=== PATIENT | female | born 1960 | race Caucasian/White ===

== ENCOUNTER 2023-04-18 10:55 | Outpatient (OUT) | payer BC, SELFPAY ==
[2023-04-18 11:09] LABS: Basophils Percent Auto 0.3 % (0.2-2.0); Eosinophils Absolute Auto 0.1 10^3/uL (0.0-0.7); Eosinophils Percent Auto 0.6 % (0.9-7.0); Hematocrit 41.6 % (36.0-48.0); Hemoglobin 13.3 g/dL (12.0-16.0); Immature Granulocytes Abs Auto 0.02 10^3/uL (0.00-0.03); Immature Granulocytes Pct Auto 0.2 % (0.0-0.5); Lymphocytes Absolute Auto 8.4 10^3/uL (1.2-3.8); Lymphocytes Percent Auto 67.7 % (20.5-60.0); Mean Corpuscular Hemoglobin 29.3 pg (26.7-34.0); Mean Corpuscular Volume 91.6 fL (81.0-99.0); Mean Platelet Volume 11.5 fL (9.5-13.5); Monocytes Absolute Auto 0.8 10^3/uL (0.3-0.8); Monocytes Percent Auto 6.2 % (1.7-12.0); Neutrophils Absolute Auto 3.1 10^3/uL (1.4-6.5); Platelet Count 259 10^3/uL (150-450); Red Blood Count 4.54 10^6/uL (4.20-5.40); Red Cell Distribution Width 13.2 % (11.0-15.0); White Blood Count 12.4 10^3/uL (4.0-11.0)
[2023-04-18 14:30] LABS: Alanine Aminotransferase 30 U/L (14-59); Albumin Globulin Ratio 0.9; Albumin Level 3.4 g/dL (3.4-5.0); Alkaline Phosphatase 49 U/L (46-116); Anion Gap 10.9; Aspartate Amino Transferase 21 U/L (15-37); BUN Creatinine Ratio 19.3; Bilirubin Total 0.4 mg/dL (0.2-1.0); Calcium 8.9 mg/dL (8.5-10.1); Chloride 107 mmol/L (98-107); Chol HDL Ratio 2.4; Cholesterol 194 mg/dL (<=200); Estimated GFR (African America >60 (>=60); Estimated GFR (Non-African Ame >60 (>=60); Glucose 86 mg/dL (74-106); HDL Cholesterol 82 mg/dL (40-60); Potassium 3.9 mmol/L (3.5-5.1); Sodium 140 mmol/L (136-145); Thyroid Stimulating Hormone 1.211 uIU/mL (0.358-3.740); Total Protein 7.4 g/dL (6.4-8.2); Triglycerides 49 mg/dL (<=150); VLDL CHOLESTEROL 9.8 mg/dL
[2023-04-18 21:24] LABS: Estimated Average Glucose 108 mg/dL; Glycohemoglobin A1C 5.4 % (4.5-6.2)
== END 2023-04-18 10:56 | disposition home or self-care (01) ==
LOC: LAB 10:55
PROVIDERS: PCP Family Medicine; Visit Provider Family Medicine
DX: Z00.00 Encounter for general adult medical examination without abnormal findings (principal)
CPT/HCPCS: 36415; 80053; 80061; 83036; 84443; 85025

== ENCOUNTER 2024-05-03 11:28 | Outpatient (OUT) | payer BC, SELFPAY ==
[2024-05-03 11:52] LABS: Basophils Absolute Auto 0.1 10^3/uL (0.0-0.1); Basophils Percent Auto 0.4 % (0.2-2.0); Eosinophils Absolute Auto 0.2 10^3/uL (0.0-0.7); Eosinophils Percent Auto 1.2 % (0.9-7.0); Hematocrit 41.9 % (36.0-48.0); Hemoglobin 13.3 g/dL (12.0-16.0); Immature Granulocytes Abs Auto 0.02 10^3/uL (0.00-0.03); Immature Granulocytes Pct Auto 0.1 % (0.0-0.5); Lymphocytes Absolute Auto 11.8 10^3/uL (1.2-3.8); Lymphocytes Percent Auto 76.6 % (20.5-60.0); Mean Corpuscular HGB Conc 31.7 g/dL (29.9-35.2); Mean Corpuscular Hemoglobin 28.7 pg (26.7-34.0); Mean Corpuscular Volume 90.5 fL (81.0-99.0); Mean Platelet Volume 11.6 fL (9.5-13.5); Monocytes Absolute Auto 0.7 10^3/uL (0.3-0.8); Monocytes Percent Auto 4.4 % (1.7-12.0); Neutrophils Absolute Auto 2.7 10^3/uL (1.4-6.5); Neutrophils Percent Auto 17.3 % (43.0-75.0); Platelet Count 239 10^3/uL (150-450); Red Blood Count 4.63 10^6/uL (4.20-5.40); Red Cell Distribution Width 13.5 % (11.0-15.0); White Blood Count 15.5 10^3/uL (4.0-11.0)
[2024-05-03 12:48] LABS: Alanine Aminotransferase 25 U/L (14-59); Albumin Globulin Ratio 0.9; Albumin Level 3.4 g/dL (3.4-5.0); Alkaline Phosphatase 52 U/L (46-116); Anion Gap 15.1; Aspartate Amino Transferase 21 U/L (15-37); BUN Creatinine Ratio 18.3; Bilirubin Total 0.5 mg/dL (0.2-1.0); Calcium 9.7 mg/dL (8.5-10.1); Carbon Dioxide 26.1 mmol/L (21.0-32.0); Chloride 105 mmol/L (98-107); Chol HDL Ratio 2.6; Cholesterol 196 mg/dL (<=200); Estimated GFR (African America >60 (>=60 mL/min/1.73m^2); Estimated GFR (Non-African Ame >60 (>=60 mL/min/1.73m^2); Globulin 3.6 g/dL; Glucose 76 mg/dL (74-106); HDL Cholesterol 76 mg/dL (40-60); Potassium 4.2 mmol/L (3.5-5.1); Sodium 142 mmol/L (136-145); Thyroid Stimulating Hormone 2.175 uIU/mL (0.358-3.740); Triglycerides 44 mg/dL (<=150); VLDL CHOLESTEROL 8.8 mg/dL
[2024-05-03 12:55] LABS: Estimated Average Glucose 103 mg/dL; Glycohemoglobin A1C 5.2 % (4.5-6.2)
== END 2024-05-03 11:29 | disposition home or self-care (01) ==
LOC: LAB 11:28
PROVIDERS: PCP Family Medicine; Visit Provider Nurse Practitioner Family
DX: Z00.00 Encounter for general adult medical examination without abnormal findings (principal)
CPT/HCPCS: 80053; 80061; 83036; 84443; 85025

== ENCOUNTER 2025-01-29 07:31 | Outpatient (OUT) | payer MEDICARE, OTHER, SELFPAY ==
--- OUTSIDE RECORDS SUMMARY | 2024-09-19 12:15 | XMS_ITS ---
Author Organization The [facility] in [place] Address [address] [place] [address] Care Team Providers Care Canine Deputy Name Role Phone Vincent Kenny Primary Care Provider [phone] Allergies Allergen (clinical drug ingredient) Drug/Non Drug Allergy documented on EMR Reaction Allergy Type Onset Date Status amoxicillin Amoxicillin nausea and vomiting Drug Allergy Active REASON FOR VISIT Body Aches, Stuffy Nose, Congestion, No Energy Medications Medication SIG (Take, Route, Fr equency, Duration) Notes Start Date End Date Status Cefdinir 300 MG 2 capsule Orally onc e a day for 10 days 09/19/2024 Active Social History Tobacco Use: Social History Observation Description Date Details (start date - stop date) Never Smoker NA - NA Tobacco Control (Standard) Question Answer Notes Tobacco use: Nonsmoker AUDIT-C (Standard) Question Answer Notes Did you have a drink containing alcohol in the p ast year? No Points 0 Interpretation Negative Vital Signs Weight 139 lbs 09/19/2024 Height 63 in 09/19/2024 Blood pressure systolic 118 mm Hg 09/20/19 25 Blood pressure diastolic 62 mm Hg 025 BMI 24.62 kg/m2 09/19/2024 Encounters Encounter Location Date Provider Diagnosis [facility] [address] [place] [address] 09/19/2024 Vincent Kenny Acute non-recurrent sinusitis, unspecified location J01.90 and Nasal congestion R09.81 Assessments Encounter Date Diagnosis (ICD Code) Assessment Notes Treatment Notes Treatment Clinical Notes Section Notes 09/19/2024 Acute non-recurrent sinusitis, unspecified location (ICD-10 - J01.90) Rest and drink more liquids, especially water. You may use a humidifier or vaporizer to help keep the drainage moist. Rkod-nph-okpwvog Nasal Saline may help the stuffy and runny nose. Use Ibuprofen and or Tylenol as needed for fever, chills, body aches or pain. Children 5 years old should not be given rghv-zjz-vegetsf cough and cold medications such as guaifenesin and dextromethorphan. If you're over age 5, you may try gfbu-qln-okqfofv cold medications such as guaifenesin and dextromethorphan, or multi-symptom cold reliever such as Dayquil to help reduce the symptoms. Antibiotics have been prescribed. You should take these until completed and follow the directions. Antibiotics can sometimes cause upset stomach, and in rare cases, serious allergic reactions or serious gastrointestinal problems. If you start having severe abdominal pain, severe vomiting, or bloody diarrhea, you should be reevaluated by your physician or urgent care immediately. Follow up with your Primary Care Provider or return to clinic if symptoms do not improve within 3-5 days 09/19/2024 Nasal congestion (ICD-10 - R09.81) Plan Of Treatment Medication Medication Name Sig Start Date Stop Date Notes Cefdinir 300 MG 2 capsule Orally once a day for 10 days Treatment Notes Assessment Notes Acute non-recurrent sinusiti s, unspecified location Rest and drink more liquids, especially water. You may use a humidifier or vaporizer to help keep the drainage moist. Tzkq-lwj-frrmigj Nasal Saline may help the stuffy and runny nose. Use Ibuprofen and or Tylenol as needed for fever, chills, body aches or pain. Children 5 years old should not be given rujs-vnw-ohftmmf cough and cold medications such as guaifenesin and dextromethorphan. If you're over age 5, you may try lvhc-ofc-pnjgoom cold medications such as guaifenesin and dextromethorphan, or multi-symptom cold reliever such as Dayquil to help reduce the symptoms. Antibiotics have been prescribed. You should take these until completed and follow the directions. Antibiotics can sometimes cause upset stomach, and in rare cases, serious allergic reactions or serious gastrointestinal problems. If you start having severe abdominal pain, severe vomiting, or bloody diarrhea, you should be reevaluated by your physician or urgent care immediately. Follow up with your Primary Care Provider or return to clinic if symptoms do not improve within 3-5 days Next Appt Details Follow Up: 3-5 days if not i mproving, Reason: Progress Notes * Charisse VOGT LDOB: [birth year] (64 yo F)Acc No.[id number]:09/19/2024 Progress Note Patient: Charisse AGUILAR Provider: Jose Kenny ([facility])MD :1960 A ge:64 Y S ex:Female Date:09/19/2024 Address:[address] [place], [place] [id number] Check In:04:03 PM ESTCheck O ut:04:45 PM EST Subjective: * Chief Complaints: * B norma Aches, Stuffy Nose, Congestion, No Energy * HPI: G eneral: sinu and some cough - pressure in sinuses - full sinuses -. S inusitis: The patient complains of symptoms of sinus infection. The symptoms have been present for 1-2 days. The symptoms are moderate. Symptomatic treatment has included OTC medication. Associated symptoms include headache, facial pain, runny nose, nasal congestion. D epression Screening: PHQ-2 (2015 Edition) L ittle interest or pleasure in doing things??Not at all F eeling down, depressed, or hopeless? N ot at all T otal Score 0 * ROS: S kin: Rash d enies. E NT: Comments S ee HPI for details. C ardiovascular: Edema d enies. P alpitations d enies. ? R espiratory: Chest pain d enies. C ough d enies. W heezing?denies. G astrointestinal: Abdominal pain d enies. N ausea d enies. V omiting d enies. * Active Problem List ?Problem List has not been verified* Medical History: * Surgical History: L eft Wrist Surgery * Hospitalization/Major Diagno stic Procedure: D enies Past Hospitalization * Family History: F ather: , diagnosed with Unspecified heart disease. M other: alive, diagnosed with Unspecified heart disease. B rother(s): alive, diagnosed with Unspecified essential hypertension. S ister(s): alive. 3 brother(s) , 1 sister(s) . . * Social History: T obacco Use: T obacco Control (Standard) T obacco use: N onsmoker D rug/Alcohol: A ANSELMO-C (Standard) D id you have a drink containing alcohol in the past year? N o P oints 0 I nterpretation N egative * Medications: N one * Allergies: A moxicillin: nausea and vomitingno[Allergies Verified] Objective: * Vitals: W t:139lbs, Ht: 63 in, BP:118/62mm Hg, BMI:24.62Index, Ht-cm: 160.02 cm, Wt-k.05 kg. * Examination: G eneral Examination: GENERAL APPEARANCE: in no acute distress, well developed, well nourished. ENT: ear and nose external appearance normal, tympanic membranes clear bilaterally, facial tenderness to palpation over sinuses. EYES: pupils equal, round, reactive to light and accomodations. ORAL CAVITY: mucosa moist. NECK: n sonali supple, full range of motion, no cervical lymphadenopathy. LUNGS: c lear to auscultation bilaterally. CARDIO: no murmurs, regular rate and rhythm, S1, S2 normal. ABDOMEN: soft, nontender , not distended, bowel sounds are active. SKIN: no suspicious lesions, warm and dry. EXTREMITIES: no clubbing, cyanosis, or edema. NEUROLOGIC: nonfocal, motor strength of upper/lower extremities intact , sensory exam intact. Assessment: * Assessment: 1. A cute non-recurrent sinusitis, unspecified location - J01.90 (Primary) 2 .?Nasal congestion - R09.81 Plan: * Treatment: * Procedure Codes: * Follow Up: 3 -5 days if not improving * * Sign off status: Completed Visit Status: C HK (Check Out) true * Provider: Jose Kenny ([facility])MD Date: 0 09/19/2024 Generated for Nahed castaneda/Faxing/eTransmitting on: 0 01/29/2025 07:39 AM EDT History and Physical Notes * HPI (History of Present Illness) Category Sub-Category Detail Notes Category Not es General sinu and some cough - pressure in sinuses - full sinuses - Depression Screening PHQ-2 (2015 Edition) Little interest or pleasure in doing things?: Not at all Feeling down, depressed, or hopeless?: N ot at all Total Score: 0 Examination Category Sub-Category Detail Notes Category Not es General Examination GENERAL APPEARANCE: in no ac [place] distress, well developed, well nourished ENT: ear and nose externa l appearance normal, tympanic membranes clear bilaterally, facial tenderness to palpation over sinuses EYES: pupils equal, round, reactive to light and accomodations NECK: neck supple, full ra nge of motion, no cervical lymphadenopathy CARDIO: no murmurs, regular rate and rhythm, S1, S2 normal LUNGS: clear to auscultatio n bilaterally ABDOMEN: soft, nontender , no t distended, bowel sounds are active NEUROLOGIC: nonfocal, motor stre ngth of upper/lower extremities intact , sensory exam intact SKIN: no suspicious lesion s, warm and dry EXTREMITIES: no clubbing, cyanosi s, or edema ORAL CAVITY: mucosa moist
--- OUTSIDE RECORDS SUMMARY | 2025-01-21 11:15 | XMS_ITS ---
Author Organization [facility] in [place] Address [address] [place] [address] Care Team Providers Care Mine Development Engineer Name Role Phone Vincent Kenny Primary Care Provider [phone] Allergies Allergen (clinical drug ingredient) Drug/Non Drug Allergy documented on EMR Reaction Allergy Type Onset Date Status amoxicillin Amoxicillin nausea and vomiting Drug Allergy Active REASON FOR VISIT tightness in her chest that wraps around to her back, started 2 weeks ago, no shortness of breath Social History Tobacco Use: Social History Observation Description Date Details (start date - stop date) Never Smoker NA - NA Tobacco Control (Standard) Question Answer Notes Tobacco use: Nonsmoker AUDIT-C (Standard) Question Answer Notes Did you have a drink containing alcohol in the p ast year? No Points 0 Interpretation Negative Problems Problem Type SNOMED Code ICD Code Onset Dates Problem Status W/U Status Risk Notes Problem Chest pain (91061550) Chest pain (R07.9) Active confirmed Vital Signs Weight 141 lbs 01/21/2025 Height 63 in 01/21/2025 Blood pressure systolic 112 mm Hg 01/22/20 25 Blood pressure diastolic 68 mm Hg 025 BMI 24.97 kg/m2 01/21/2025 Procedures Procedure Date Ordered Date Performed Result Body Sit e CARDIO Stress Test - Cardiolite 01/21/2025 N/A CARDIO Echocardiogram 01/21/2025 N/A Encounters Encounter Location Date Provider Diagnosis [facility] [address] [place] [address] 01/21/2025 Vincent Kenny Chest pain R07.9 Assessments Encounter Date Diagnosis (ICD Code) Assessment Notes Treatment Notes Treatment Clinical Notes Section Notes 01/21/2025 Chest pain (ICD-10 - R07.9) 01/21/2025 Other Discussed increasing physical exercise and continuing/impl ementing a healthier diet. Plan Of Treatment Treatment Notes Assessment Notes Other Discussed increasing physical exercise and continuing/implementing a healthier diet. Pending Test Test Name Order Date CARDIO Stress Test - Cardiolite 01/22/20 CARDIO Echocardiogram 01/21/2025 Procedure Notes * Category Sub-Category Detail Notes EKG w/Interp Interpretation: Frequent PAC's-[address] - T wave changes Progress Notes * Charisse VOGT LDOB: [birth year] (64 yo F)Acc No.[id number]:01/21/2025 Progress Note Patient: Charisse AGUILAR Provider: Jose Kenny ([facility])MD :1960 A ge:64 Y S ex:Female Date:01/21/2025 Address:[address] [place], [place] [id number] Check In:03:08 PM ESTCheck O ut:03:50 PM EST Subjective: * Chief Complaints: * T ightness in her chest that wraps around to her back, started 2 weeks ago, no shortness of breath * HPI: G eneral: Palpitations and chext pressure - some BRAGG. C hest Pain: The patient complains of c hest pain. The symptoms have been present for 1 -2 days . The symptoms are m ild. Symptomatic treatment has included n one. Associated symptoms include f atigue, chest tightness. * ROS: G eneral/Constitutional: Lightheadedness d enies. C hange in appetite d enies. W eight Change d enies. C ardiovascular: Irregular heartbeat d enies. S welling in hands/feet?denies. R espiratory: Shortness of breath d enies. S hortness of breath at rest d enies. W heezing d enies. N eurologic: Dizziness d enies. F ainting d enies. H eadache?denies. * Active Problem List R07.9 Chest pain Modified On:01/21/2025W/U Status:confirmed * Medical History: * Surgical History: L eft Wrist Surgery * Hospitalization/Major Diagno stic Procedure: N o Hospitalization History. * Family History: F ather: , diagnosed [...] and vomitingno[Allergies Verified] Objective: * Vitals: W t:141lbs, Ht: 63 in, BP:112/68mm Hg, BMI:24.97Index, Ht-cm: 160.02 cm, Wt-k.96 kg. * Examination: G eneral Examination: GENERAL APPEARANCE: in no acute distress, well developed, well nourished. LUNGS: clear to auscultation bilaterally. CARDIO: S1, S2 normal, no murmurs, rubs, gallops. EXTREMITIES: no clubbing, cyanosis, or edema. NEUROLOGIC: alert, oriented to time, place, & person.? Assessment: * Assessment: 1. C hest pain - R07.9 (Primary) Plan: * Treatment: 2. O thers Notes:Discussed increasing physical exercise and continuing/implementing a healthier diet. * Procedures: E KG w/Interp: Interpretation: F requent PAC's-[address] - T wave changes. * Procedure Codes: * * Sign off status: Completed Visit Status: C HK (Check Out) true * Provider: Jose Kenny ([facility])MD Date: 0 01/21/2025 Generated for Nahed castaneda/Laura/eTransmitting on: 0 01/29/2025 07:39 AM EDT History and Physical Notes * HPI (History of Present Illness) Category Sub-Category Detail Notes Category Not es Chest Pain The patient complains of chest pain The symptoms have been present for 1-2 d ays The symptoms are mild Symptomatic treatment has included none Associated symptoms include fatigue, hema st tightness General Palpitations and chext pressure - some BRAGG Examination Category Sub-Category Detail Notes Category Not es General Examination GENERAL APPEARANCE: in no ac [place] distress, well developed, well nourished CARDIO: S1, S2 normal, no mu rmurs, rubs, gallops LUNGS: clear to auscultatio n bilaterally NEUROLOGIC: alert, oriented to t naye, place, & person EXTREMITIES: no clubbing, cyanosi s, or edema
--- OUTSIDE RECORDS SUMMARY | 2025-01-29 07:39 | XMS_ITS | Patient Health Record ---
Author Organization [facility] in [place] Address [address] [place] [address] Care Team Providers Care Rejector Name Role Phone Vincent Kenny Primary Care Provider Allergies Allergen (clinical drug ingredient) Drug/Non Drug Allergy documented on EMR Reaction Allergy Type Onset Date Status amoxicillin Amoxicillin nausea and vomiting Drug Allergy Active Results Component Value Reference Range Notes TSH Reviewed date:05/03/2024 08:26:52 PM Interpretation: Performing Lab: Notes/Report: [facility] , Thyroid Stimulating Hormone 2.175 0.358-3.740 u IU/mL Performing Lab: see note ML - [facility] LB PROF 14(COMP METB) Reviewed date:05/03/2024 08:26:52 PM Interpretation: Performing Lab: Notes/Report: [facility] , Sodium 142 136-145 mmol/L Potassium 4.2 3.5-5.1 mmol/L Chloride 105 98-107 mmol/L Carbon Dioxide 26.1 21.0-32.0 mmol/L Anion Gap 15.1 Glucose 76 74-106 mg/dL Blood Urea Nitrogen 17.0 7.0-18.0 mg/dL Creatinine 0.93 0.55-1.02 mg/dL Estimated GFR ( Rosa Isela >60 >=60 mL/min/1.73m 2 Estimated GFR (Non- Lucia >60 >=60 mL/min/1.73m 2 BUN Creatinine Ratio 18.3 Calcium 9.7 8.5-10.1 mg/dL Bilirubin Total 0.5 0.2-1.0 mg/dL Aspartate Amino Transferase 21 15-37 U/L Alanine Aminotransferase 25 14-59 U/L Alkaline Phosphatase 52 46-116 U/L Total Protein 7.0 6.4-8.2 g/dL Albumin Level 3.4 3.4-5.0 g/dL Globulin 3.6 Albumin Globulin Ratio 0.9 Performing Lab: see note ML - [facility] LB LIPID PROFILE Reviewed date:05/03/2024 08:26:52 PM Interpretation: Performing Lab: Notes/Report: [facility] , Triglycerides 44 <=150 mg/dL Cholesterol 196 <=200 mg/dL HDL Cholesterol 76 40-60 mg/dL > or =60 mg/dl - LOW CARDIOVASCULAR RISK <40 mg/dl - HIGH CARDIOVASCULAR RISK LDL Cholesterol Calculated 112.0 <100 mg/dl OPTIMAL 100-129 mg/dl NEAR OR ABOVE OPTIMAL 130-159 mg/dl BORDERLINE HIGH 160-189 mg/dl HIGH >190 mg/dl VERY HIGH VLDL CHOLESTEROL 8.8 Chol HDL Ratio 2.6 3.3 - 4.4 LOW RISK 4.4 - 7.1 AVERAGE RISK 7.1 - 11.0 MODERATE RISK >11.0 HIGH RISK Performing Lab: see note ML - [facility] GLYCOHEMOGLOBIN A1C Reviewed date:05/03/2024 08:26:52 PM Interpretation: Performing Lab: Notes/Report: [facility] , Glycohemoglobin A1C 5.2 4.5-6.2 % ADA RECOMMENDED LIMIT 4.0 - 6.0 ADA THERAPEUTIC TARGET < 7.0 ACTION SUGGESTED > 7.0 Estimated Average Glucose 103 Performing Lab: see note ML - [facility] LB CBC AUTO DIFF Reviewed date:05/03/2024 01:00:50 PM Interpretation: Performing Lab: Notes/Report: [facility] , White Blood Count 15.5 4.0-11.0 10 3/uL Red Blood Count 4.63 4.20-5.40 10 6/uL Hemoglobin 13.3 12.0-16.0 g/dL Hematocrit 41.9 36.0-48.0 % Mean Corpuscular Volume 90.5 81.0-99.0 fL Mean Corpuscular Hemoglobin 28.7 26.7-34.0 pg Mean Corpuscular HGB Conc 31.7 29.9-35.2 g/dL Red Cell Distribution Width 13.5 11.0-15.0 % Platelet Count 239 150-450 10 3/uL Mean Platelet Volume 11.6 9.5-13.5 fL Neutrophils Percent Auto 17.3 43.0-75.0 % Lymphocytes Percent Auto 76.6 20.5-60.0 % Monocytes Percent Auto 4.4 1.7-12.0 % Eosinophils Percent Auto 1.2 0.9-7.0 % Basophils Percent Auto 0.4 0.2-2.0 % Immature Granulocytes Pct Auto 0.1 0.0-0.5 % Neutrophils Absolute Auto 2.7 1.4-6.5 10 3/uL Lymphocytes Absolute Auto 11.8 1.2-3.8 10 3/uL Monocytes Absolute Auto 0.7 0.3-0.8 10 3/uL Eosinophils Absolute Auto 0.2 0.0-0.7 10 3/uL Basophils Absolute Auto 0.1 0.0-0.1 10 3/uL Immature Granulocytes Abs Auto 0.02 0.00-0.03 10 3/uL Performing Lab: see note ML - [facility] Reason For Referral No Information Social History Tobacco Use: Social History Observation [...] W/U Status Risk Notes Problem Chest pain ([id number]) Chest pain (R07.9) Active confirmed Vital Signs Blood pressure diastolic 68 mm Hg 01/21/2025 Height 63 in 01/21/2025 Blood pressure systolic 112 mm Hg 01/21/2025 Weight 141 lbs 01/21/2025 BMI 24.97 kg/m2 01/21/2025 Procedures Procedure Date Ordered Date Performed Result Body Sit e CARDIO Stress Test - Cardiolite 01/21/2025 N/A CARDIO Echocardiogram 01/21/2025 N/A Encounters Encounter Location Date Provider Diagnosis [facility] [address] [place] [address] 09/19/2024 Vincent Hoy Acute non-recurrent sinusitis, unspecified location J01.90 and Nasal congestion R09.81 [facility] [address] [place] [address] 01/21/2025 Vincent Hoy Chest pain R07.9 Assessments Encounter Date Diagnosis (ICD Code) Assessment Notes Treatment Notes Treatment Clinical Notes Section Notes 09/19/2024 Acute non-recurrent sinusitis, unspecified location (ICD-10 - J01.90) Rest and drink more liquids, especially water. You may use a humidifier or vaporizer to help keep the drainage moist. Nuxg-jel-ktbfguq Nasal Saline may help the stuffy and runny nose. Use Ibuprofen and or Tylenol as needed for fever, chills, body aches or pain. Children 5 years old should not be given mhdc-sgj-kckghqx cough and cold medications such as guaifenesin and dextromethorphan. If you're over age 5, you may try qxxn-pym-owqhplt cold medications such as guaifenesin and dextromethorphan, [...] symptoms do not improve within 3-5 days 01/21/2025 Chest pain (ICD-10 - R07.9) 09/19/2024 Nasal congestion (ICD-10 - R09.81) 01/21/2025 Other Discussed incre asing physical exercise and continuing/implement ing a healthier diet. Plan Of Treatment Pending Test Test Name Order Date CARDIO Stress Test - Cardiolite 01/22/20 25 CARDIO Echocardiogram 01/21/2025 Insurance Providers Payer Name Payer Address Payer Phone Subscriber Number Group Number Insured Name Patient Relationship to Insured Coverage Start Date Coverage End Date [place]IC[place] [address] [place] [address] [id number] JeremyCharisse pan Self - patient is the insured [facility] MEDICARE SUPPLEMENT [address] [address] [place] [address] [id number] Charisse Vogt Self - patient is the insured Medical (General) History Surgical History Surgery Date(Month/Year) Left Wrist Surgery
--- NOTE | 2025-01-29 07:45 | NM_ITS ---
Patient Name: BENITO ALANIS MR#: [id number] : 1960 Exam Date: 01/29/2025 Ordering Doctor: DR FELICIA JARAMILLO . RADIOLOGY REPORT PROCEDURE: NM ANAYA PERF SPECT REST STR COMPARISON: None. INDICATIONS: CHEST PAIN TECHNIQUE: Exam Description: Stress/Rest one day protocol gated SPECT Rest Imagin.8 mCi Tc-99m Cardiolite IV on 01/29/2025 Stress Imaging 29.4 mCi Tc-99m Cardiolite IV on 01/29/2025 Exercise Protocol: Frandy Heart Rate (bpm): Rest: 73 Max: 142 PMHR: 91 Blood Pressure: Rest: 131/67 Max: 158/94 Exercise Time: Minutes: 6 Seconds: 31 Stage Reached: Stage: 3 Mets 8.6 Symptoms: Rest and peak stress ECG findings were pending, and the exercise portion of the study was pending per attending physician [facility] . For more details, please see separate cardiac stress test report. FINDINGS: QUALITY OF STUDY: Good PERFUSION DEFECT: LOCATION: N/A SIZE: N/A SEVERITY: N/A TYPE: N/A WALL MOTION: Normal wall motion LV SIZE: 51 mL. TID / TCD: 0.7 LVEF: Calculated EF 82%. SUMMARY: Myocardial perfusion imaging study is normal CONCLUSION: 1. Myocardial perfusion is normal with diaphragmatic attenuation 2. Global left ventricular systolic function is hyperdynamic; EF 82% 3. No evidence of significant transient ischemic dilatation Dictated by: Dayanna Castrejon M.D. on 01/29/2025 at 16:00 Approved by: Dayanna Castrejon M.D. on 01/29/2025 at 16:02
--- OUTSIDE RECORDS SUMMARY | 2025-01-29 07:58 | XMS_ITS | CCD ---
Author Organization [facility] Inform ion Partnership [facility] Care Team Providers Care Machine Captain Name Role Phone DANTE CONTRERAS Attending Unavailable DANTE CONTRERAS Consulting Unavailable DANTE CONTRERAS Admitting Unavailable REQUEST, DR MORRIS LISTED Primary Care Unavaila ble Results Test Name Value Interpretation Reference Range Facil ity GLUCOSE BLOODon 06-29-2022 Glucose [Mass/Vol] 83 mg/dL Normal 74-106 [facility] Comment on above: Performed By: #### L IPID, GLUC #### [facility] [address] [place] [address] Dr. Juana Limon LIPID PROFILEon 06-29-2022 CHOL-HDL RATIO NORM SEE BELOW Normal [facility] Comment on above: Result Comment: 3.3 - 4.4 LOW RISK 4.4 - 7.1 AVERAGE RISK 7.1 - 11.0 MODERATE RISK >11.0 HIGH RISK Performed By: #### L IPID, GLUC #### [facility] [address] [address] [address] Juana Limon Cholesterol [Mass/Vol] 196 mg/dL Normal <=200 [facility] Comment on above: Performed By: #### L IPID, GLUC #### [facility] [address] [address] [address] Juana Limon Cholesterol in HDL [Mass/Vol] 85 mg/dL Critically high 40-60 [facility] Comment on above: Performed By: #### L IPID, GLUC #### [facility] [address] [address] [address] Juana Limon Cholesterol in LDL [Mass/Vol] 98.8 mg/dL Normal [facility] Comment on above: Performed By: #### L IPID, GLUC #### [facility] [address] [address] [address] Juana Limon Cholesterol.total/C holesterol in HDL [Mass ratio] 2.3 {ratio} Normal [facility] Comment on above: Performed By: #### L IPID, GLUC #### [facility] [address] [address] [address] Juana Limon HDL NORMAL > or = 60 mg/dl - LO W CARDIOVASCULAR RISK <40 mg/dl - HIGH CARDIOVASCULAR RISK Normal [facility] Comment on above: Performed By: #### L IPID, GLUC #### [facility] [address] [address] [address] Juana Limon LDL CALC NORMAL SEE BELOW Normal [facility] Comment on above: Result Comment: <100 mg/dl OPTIMAL 100 - 129 mg/dl NEAR OR ABOVE OPTIMAL 130 - 159 mg/dl BORDERLINE HIGH 160 - 189 mg/dl HIGH >190 mg/dl VERY HIGH Performed By: #### L IPID, GLUC #### [facility] [address] [address] [address] Juana Limon Triglyceride [Mass/Vol] 61 mg/dL Normal <=150 [facility] Comment on above: Performed By: #### L IPID, GLUC #### [facility] [address] [address] [address] Juana Limon VLDL CALC 12.2 mg/dL Normal [facility] Comment on above: Performed By: #### L IPID, GLUC #### [facility] [address] [address] [address] Juana Limon Encounters Encounter Date Encounter Type Care Provider Facility Start: 07-03-2022 Encounter for genera l adult medical examination without abnormal findings DANTE CONTRERAS [facility] Start: 06-29-2022 End: 06-30-2022 ambulatory DANTE CONTRERAS Facility:[facility] Start: 06-29-2022 End: 06-30-2022 Encounter for general adult medical examination without abnormal findings DANTE CONTRERAS Facility:[facility] Payers Date Payer Category Payer Unknown [id number] 1960 Unknown [id number] Summary Purpose Family History No Family History Records Found Advance Directives No Advanced Directives Records Found Additional Source Comments INFORMATION SOURCE (unrecogn ized section and content) DATE CREATED AUTHOR 07/09/2022 The [facility] FOR RECORDS PERTAINING TO PATIENTS WHO ARE OR HAVE BEEN ENROLLED IN A CHEMICAL DEPENDENCY/SUBSTANCEABUSE PROGRAM, SOME INFORMATION MAY BE OMITTED. This clinical summary was aggregated from multiple sources. Caution should be exercised in using it in the provision of clinical care. This summary normalizes information from multiple sources, and as a consequence, information in this document may materially change the coding, format and clinical context of patient data. In addition, data may be omitted in some cases. CLINICAL DECISIONS SHOULD BE BASED ON THE PRIMARY CLINICAL RECORDS. [employer] [facility]. provides no warranty or guarantee of the accuracy or completeness of information in this document.
--- NOTE | 2025-01-29 10:00 | PC.NURSE ---
Nursing Note Cardiac Stress Test Reviewed: Medication, allergies and patient history reviewed. Stress Test: [x ] Patient tolerated stress test well. [ ] Patient unable to tolerate walking on treadmill. Switched to Lexiscan stress test. [x ] No chest pain noted per patient [ ] Chest pain that resolved prior to leaving stress lab. [ ] No dyspnea noted. [x ] Dyspnea that resolved prior to leaving stress lab. [x ] Patient left stress lab asymptomatic and hemodynamically stable. [ ] Patient taken to the Emergency Room due to non-resolving symptoms following stress test. [x ] Patient achieved target heart rate. [ ] Patient unable to achieve target heart rate. [ ] Aminophylline administered as reversal agent to Lexiscan (Regadenoson). [ ] Nitro administered. Nursing Comments:Pt had Cardiolite test done. No CP but did have SOB which she states is normal for her with activity. Pt left lab with no symptoms and ambulated to cafeteria for breakfast prior to second set of images.
--- NOTE | 2025-01-29 11:53 | PM.STRESS ---
Stress Test Stress Test Requesting physician: Preet Kenny Procedure: Treadmill nuclear stress test with Cardiolyte injection General Information: Reason for Stress Test: [Chest pain] Cardiac History and Risk Factors: [None documented] Resting 12 - Lead Electrocardiogram: Sinus rhythm with premature atrial complexes Incomplete right bundle branch block Borderline EKG Stress Test: Protocol: [Frandy protocol: The patient exercised for 6 minutes and 31 seconds achieving a work level of maximum METS 8.60. The test was terminated due to achievement of target heart rate and fatigue.] Exercise Capacity: [Average] Blood Pressure Response: [Normal blood pressure response] Rhythm: [Sinus rhythm with frequent premature atrial complexes] ST - Response: [No significant ST-T wave abnormalities] Patient Response: [No chest pain] Interpretation: 1. No ischemic ST-T wave abnormalities on treadmill stress test 2. Appropriate heart rate and blood pressure response to exercise 3. Sotelo treadmill score is +5.8; this represents a low risk category with estimated 5-year survival is 99%. Angiography is usually not indicated. 4. Nuclear images are to be read, interpreted, and reported separately
== END 2025-01-29 07:32 | disposition home or self-care (01) ==
LOC: NM 07:37
PROVIDERS: PCP Family Medicine; Visit Provider Family Medicine
DX: R07.9 Chest pain, unspecified (principal)
CPT/HCPCS: 78452; 93017; A9500

== ENCOUNTER 2025-02-13 08:43 | Outpatient (OUT) | payer MEDICARE, OTHER, SELFPAY ==
--- OUTSIDE RECORDS SUMMARY | 2024-09-19 12:15 | XMS_ITS ---
Author Organization The [facility] in [place] Address [address] [place] [address] Care Team Providers Care Beam House Inspector Name Role Phone Vincent Kenny Primary Care Provider Allergies Allergen (clinical drug ingredient) Drug/Non Drug [...] 09/19/2024 Encounters Encounter Location Date Provider Diagnosis [facility] [address] [place] [address] 09/19/2024 Vincent Kenny Acute non-recurrent sinusitis, unspecified location J01.90 and Nasal congestion R09.81 Assessments Encounter Date Diagnosis (ICD Code) Assessment Notes Treatment Notes Treatment Clinical Notes Section Notes 09/19/2024 Acute non-recurrent sinusitis, unspecified location (ICD-10 - J01.90) Rest and drink more liquids, especially water. You may use a humidifier or vaporizer to help keep the drainage moist. Tstm-ulr-kdqtyti Nasal Saline may help the stuffy and runny nose. Use Ibuprofen and or Tylenol as needed for fever, chills, body aches or pain. Children 5 years old should not be given pcjc-ixj-wdfswfj cough and cold medications such as guaifenesin and dextromethorphan. If you're over age 5, you may try xonu-wmy-fqqcyov cold medications such as guaifenesin and dextromethorphan, [...] vaporizer to help keep the drainage moist. Scxx-uhe-kpehofs Nasal Saline may help the stuffy and runny nose. Use Ibuprofen and or Tylenol as needed for fever, chills, body aches or pain. Children 5 years old should not be given zxss-ddr-ntetluu cough and cold medications such as guaifenesin and dextromethorphan. If you're over age 5, you may try atwp-wes-ysqjbcc cold medications such as guaifenesin and dextromethorphan, [...] Charisse VOGT LDOB: [birth year] (64 yo F)Acc No.[id number]:09/19/2024 Progress Note Patient: Charisse AGUILAR Provider: Jose Kenny ([facility])MD :1960 A ge:64 Y S ex:Female Date:09/19/2024 Address:[address] [place], [place] [id number] Check In:04:03 PM ESTCheck O ut:04:45 PM [...] (Check Out) true * Provider: Jose Kenny ([facility])MD Date: 0 09/19/2024 Generated for Nahed castaneda/Faxing/eTransmitting on: 0 02/13/2025 08:46 AM EDT History and Physical Notes * [...] General Examination GENERAL APPEARANCE: in no ac [place] distress, well developed, well nourished ENT: ear [...]
--- OUTSIDE RECORDS SUMMARY | 2025-01-21 11:15 | XMS_ITS ---
Author Organization The [facility] in [place] Address [address] [place] [address] Care Team Providers Care Linen Clerk Name Role Phone Vincent Kenny Primary Care [...] W/U Status Risk Notes Problem Chest pain (R07.9) Active confirmed Vital Signs Weight 141 lbs 01/21/2025 Height 63 in 01/21/2025 Blood pressure systolic 112 mm Hg 01/22/20 25 Blood pressure diastolic 68 mm Hg 025 BMI 24.97 kg/m2 01/21/2025 Procedures Procedure Date Ordered Date Performed Result Body Sit e CARDIO Stress Test - Cardiolite 01/21/2025 N/A CARDIO Echocardiogram 01/21/2025 N/A Encounters Encounter Location Date Provider Diagnosis [facility] [address] [place] [address] 01/21/2025 Vincent Kenny Chest pain R07.9 Assessments [...] - T wave changes Progress Notes * ZEKEChidiyl LDOB: [birth year] (64 yo F)Acc No.[id number]:01/21/2025 Progress Note Patient: Charisse AGUILAR Provider: Jose Kenny ([facility])MD :1960 A ge:64 Y S ex:Female Date:01/21/2025 Address:[address] [place], [place] [id number] Check In:03:08 PM ESTCheck O ut:03:50 PM [...] (Check Out) true * Provider: Jose Kenny ([facility])MD Date: 0 01/21/2025 Generated for Pagei leonel/Laura/eTransmitting on: 02/13/2025 08:47 AM EDT History and Physical Notes * [...]
--- OUTSIDE RECORDS SUMMARY | 2025-01-29 12:42 | XMS_ITS ---
Author Organization The [facility] [place] Address [address] [place] [address] Care Team Providers Care Deputy Clerk Of Court Name Role Phone Vincent Kenny Primary Care Provider [phone] REASON FOR VISIT stress results Encounters Encounter Location Date Provider Diagnosis [facility] [address] [place] [address] 01/29/2025 Vincent Kenny Plan Of Treatment No Information Progress Notes * Charisse VOGT LDOB: (64 yo F)Acc No.[id number]:01/29/2025 Patient: Jose IRENE Charisse Barrera :1960 A ge:64 Y S ex:Female Address:[address] [place] [address] , [place], [address] * true * Date: Generated for Nahed castaneda/Laura/eTransmitting on: 0 02/13/2025 08:46 AM EDT
--- OUTSIDE RECORDS SUMMARY | 2025-02-13 08:47 | XMS_ITS | Patient Health Record ---
Author Organization The [facility] in [place] Address [address] [place] [address] Care Team Providers Care Machinist Supervisor Outside Name Role Phone Vincent Jaramillo Primary Care Provider Allergies Allergen (clinical drug ingredient) Drug/Non Drug Allergy documented on EMR Reaction Allergy Type Onset Date Status amoxicillin Amoxicillin nausea and vomiting Drug Allergy Active Results Component Value Reference Range Notes CBC AUTO DIFF Reviewed date:05/03/2024 01:00:50 PM Interpretation: Performing Lab: Notes/Report: [facility] , White Blood Count 15.5 4.0-11.0 [...] 3/uL Performing Lab: see note ML - [facility] NM anaya perf SPECT rest str Reviewed date:01/29/2025 04:43:33 PM Interpretation: Performing Lab: Notes/Report: Source Facility: [place] [address] Nuclear Medicine Report Signed Patient: CHARISSE VOGT MR#: [id number] : 1960 Acct:[id number] Age/Sex: 64 / F ADM Date: 01/29/25 Loc: NM Attending Dr: Felicia Jaramillo M.D. Ordering Physician: Felicia Jaramillo M.D. Date of Service: 01/29/25 Procedure(s): NM anaya perf SPECT rest str Accession Number(s): [id number] cc: Felicia Jaramillo M.D. Patient Name: CHARISSE VOGT MR#: [id number] : 1960 Exam Date: 01/29/2025 Ordering Doctor: DR FELICIA JARAMILLO . RADIOLOGY REPORT PROCEDURE: NM ANAYA PERF SPECT REST STR COMPARISON: None. INDICATIONS: CHEST PAIN TECHNIQUE: Exam Description: Stress/Rest one day protocol gated SPECT Rest Imagin.8 mCi Tc-99m Cardiolite IV on 01/29/2025 Stress Imaging 29.4 mCi Tc-99m Cardiolite IV on 01/29/2025 Exercise Protocol: Frandy Heart Rate (bpm): Rest: 73 Max: 142 PMHR: 91 Blood Pressure: Rest: 131/67 Max: 158/94 Exercise Time: Minutes: 6 Seconds: 31 Stage Reached: Stage: 3 Mets 8.6 Symptoms: Rest and peak stress ECG findings were pending, and the exercise portion of the study was pending per attending physician [facility] . For more details, please see separate cardiac stress test report. FINDINGS: QUALITY OF STUDY: Good PERFUSION DEFECT: LOCATION: N/A SIZE: N/A SEVERITY: N/A TYPE: N/A WALL MOTION: Normal wall motion LV SIZE: 51 mL. TID / TCD: 0.7 LVEF: Calculated EF 82%. SUMMARY: Myocardial perfusion imaging study is normal CONCLUSION: 1. Myocardial perfusion is normal with diaphragmatic attenuation 2. Global left ventricular systolic function is hyperdynamic; EF 82% 3. No evidence of significant transient ischemic dilatation Dictated by: Dayanna Castrejon M.D. on 01/29/2025 at 16:00 Approved by: Dayanna Castrejon M.D. on 01/29/2025 at 16:02 Dictated By: Dayanna Castrejon M.D. Signed By: 01/29/25 1603 DD/ 1602 TD/TT: Police Lieutenant: [place] [address] Nuclear Medicine Report Signed Patient: NAZARIO VOGT MR#: [id number] : 1960 Acct:[id number] Age/Sex: 64 / F ADM Date: 01/29/25 Loc: NM Attending Dr: Gurmeet Jaramillo M.D. Ordering Physician: Felicia Jaramillo M.D. Date of Service: 01/29/25 Procedure(s): NM anaya perf SPECT rest str Accession Number(s): [id number] cc: Felicia Jaramillo M.D. Patient Name: CHARISSE VOGT MR#: [id number] : 1960 Exam Date: 01/29/2025 Ordering Doctor: DR FELICIA JARAMILLO . RADIOLOGY REPORT PROCEDURE: NM ANAYA PERF SPECT REST STR COMPARISON: None. INDICATIONS: CHEST PAIN TECHNIQUE: Exam Description: Stress/Rest one day protocol gated SPECT Rest Imagin.8 mC i Tc-99m Cardiolite IV on 01/29/2025 Stress Imaging 29.4 mCi Tc-99m Cardiolite IV on 01/29/2025 Exercise Protocol: Frandy Heart Rate (bpm): Rest: 73 Max: 142 PMHR: 91 Blood Pressure: Rest: 131/67 Max: 158/94 Exercise Time: Minutes: 6 Seconds: 31 Stage Reached: Stage : 3 Mets 8.6 Symptoms: Rest and peak stress ECG findings were pending, and the exercise portion of the study was pendin g per attending physician [facility] . For more details, please see separate cardiac stress test report. FINDINGS: QUALITY OF STUDY: Good PERFUSION DEFECT: LOCATION: N/A SIZE: N/A SEVERITY: N/A TYPE: N/A WALL MOTION: Normal wall motion LV SIZE: 51 mL. TID / TCD: 0.7 LVEF: Calculated EF 82%. SUMMARY: Myocardial perfusion imaging study is normal CONCLUSION: 1. Myocardial perfusion is normal with diaphragmatic attenuation 2. Global left ventricular systolic function is hyperdynamic; EF 82% 3. No evidence of significant transient ischemic dilatation Dictated by: Dayanna Castrejon M.D. on 01/29/2025 at 16:00 Approved by: Dayanna Castrejon M.D. on 01/29/2025 at 16:02 Dictated By: Dayanna Castrejon M.D. Signed By: 01/29/25 1603 DD/ 1602 TD/TT: Police Lieutenant: T[facility] Reviewed date:05/03/2024 08:26:52 PM Interpretation: Performing Lab: Notes/Report: [facility] , Thyroid Stimulating Hormone 2.175 0.358-3.740 uIU/mL Performing Lab: see note ML - [facility] PROF 14(COMP METB) Reviewed date:05/03/2024 08:26:52 PM Interpretation: Performing Lab: Notes/Report: [facility] , Sodium 142 136-145 mmol/L Potassium [...] 0.9 Performing Lab: see note ML - [facility] LIPID PROFILE Reviewed date:05/03/2024 08:26:52 PM Interpretation: Performing Lab: Notes/Report: [facility] , Triglycerides 44 <=150 mg/dL Cholesterol 196 <=200 mg/dL HDL Cholesterol 76 40-60 mg/dL <40 mg/dl - HIGH CARDIOVASCULAR RISK > or =60 mg/dl - LOW CARDIOVASCULAR RISK LDL Cholesterol Calculated 112.0 160-189 mg/dl HIGH 100-129 mg/dl NEAR OR ABOVE OPTIMAL <100 mg/dl OPTIMAL >190 mg/dl VERY HIGH 130-159 mg/dl BORDERLINE HIGH VLDL CHOLESTEROL 8.8 Chol HDL Ratio 2.6 7.1 - 11.0 MODERATE RISK 4.4 - 7.1 AVERAGE RISK 3.3 - 4.4 LOW RISK >11.0 HIGH RISK Performing Lab: see note - [facility] GLYCOHEMOGLOBIN A1C Reviewed date:05/03/2024 08:26:52 PM Interpretation: Performing Lab: Notes/Report: [facility] , Glycohemoglobin A1C 5.2 4.5-6.2 % ADA THERAPEUTIC TARGET < 7.0 ACTION SUGGESTED ADA RECOMMENDED LIMIT 4.0 - 6.0 > 7.0 Estimated Average Glucose 103 Performing Lab: see note ML - [facility] Reason For Referral No Information Social History [...] Date Performed Result Body Sit e CARDIO Echocardiogram 01/21/2025 N/A CARDIO Stress Test - Cardiolite 01/21/2025 N/A Encounters Encounter Location Date Provider Diagnosis [address] [place] [address] 09/19/2024 Vincent Hoy Acute non-recurrent sinusitis, unspecified location J01.90 and Nasal congestion R09.81 [address] [place] [address] 01/21/2025 Vincent Hoy Chest pain R07.[address] [address] 01/29/2025 Vincent Hoy Assessments Encounter Date Diagnosis (ICD Code) Assessment Notes Treatment Notes Treatment Clinical Notes Section Notes 09/19/2024 Acute non-recurrent sinusitis, unspecified location (ICD-10 - J01.90) Rest and drink more liquids, especially water. You may use a humidifier or vaporizer to help keep the drainage moist. Yqcq-wtj-booqdob Nasal Saline may help the stuffy and runny nose. Use Ibuprofen and or Tylenol as needed for fever, chills, body aches or pain. Children 5 years old should not be given bzln-djv-ygvshrr cough and cold medications such as guaifenesin and dextromethorphan. If you're over age 5, you may try pixp-bcr-kvuhqvw cold medications such as guaifenesin and dextromethorphan, [...] Test - Cardiolite 01/22/20 CARDIO Echocardiogram 01/21/2025 Insurance Providers Payer Name Payer Address Payer Phone Subscriber Number Group Number Insured Name Patient Relationship to Insured Coverage Start Date Coverage End Date [place] [address] [place] [address] [id number] Charisse Vogt Self - patient is the insured [employer] MEDICARE SUPPLEMENT [address] [address] [place] [address] [phone] [id number] Charisse Vogt Self - patient is the insured Medical (General) History Surgical History Surgery Date(Month/Year) Left Wrist Surgery
--- NOTE | 2025-02-13 09:00 | CA_ITS ---
Patient Name: BENITO ALANIS MR#: [id number] : 1960 Exam Date: 02/13/2025 Ordering Doctor: DR FELICIA JARAMILLO . ECHOCARDIOGRAM REPORT PROCEDURE: CA ECHO DOPPLER COMPLETE INDICATIONS: Chest pain COMPARISON: None. DESCRIPTION: COMPLETE ECHOCARDIOGRAM Real-time transthoracic echocardiography with 2D, M-mode, spectral and color flow Doppler performed. QUALITY: Technical quality was good. LEFT VENTRICLE: Normal chamber size. Thickened septal wall. Global left ventricular systolic function is normal. LV EF: Estimated left ventricular ejection fraction is 60%. DIASTOLIC: Normal diastolic function. ATRIAL SEPTUM: LEFT ATRIUM: Normal chamber size. RIGHT ATRIUM: Normal chamber size. RIGHT VENTRICLE: Normal chamber size. Normal right ventricular systolic function. TRICUSPID VALVE: Normal mobility and thickness. No stenosis with mild to moderate regurgitation. No evidence of pulmonary hypertension. RVSP 25 mmHg. MITRAL VALVE: Normal mobility and thickness. No evidence of mitral valve stenosis. There is no mitral annular calcification. Trivial mitral regurgitation. AORTIC VALVE: Normal trileaflet appearance. No visible sclerosis. Normal leaflet mobility. No evidence of aortic valve stenosis. Trivial aortic regurgitation. AORTIC ROOT: Normal diameter and appearance, measuring 3.1 cm. The ascending aorta is normal in size, measuring 2.4 cm. PULMONIC VALVE: Normal thickness and mobility. No stenosis. No regurgitation. PERICARDIUM: Trivial pericardial effusion. IVC: Collapses with inspiration. Normal size. PLEURA: CONCLUSION: 1. Normal ventricular size and systolic function. Estimated LVEF is 60%. 2. Normal diastolic function. 3. Mild to moderate tricuspid regurgitation. 4. Normal right-sided pressures. 5. Trivial pericardial effusion. Adult Echocardiography Procedure Report Left Ventricle LVEDD (3.7 - 5.6 cm): 3.99 cm LVESD (2.2 - 4.0 cm): 2.90 cm LVIVS thickness (0.6 - 1.2 cm): 1.21 cm LVPW thickness (0.5 - 1.0 cm): 0.80 cm e': 0.10 m/s E - e': 5.90 LVOT Max Gradient: 2.64 mm[Hg] LVOT Area (cm2): 0.81 m/s Peak Velocity (LVOT): 0.81 m/s Mean Velocity (LVOT): 0.54 m/s LVOT Diameter 1.94 cm Left Ventricular Ejection Fraction: 60% Left Atrium LA Volume Index (2D A2C): 23.89 ml/m2 Left Atrium Systolic Dimension: 3.00 cm Mitral Valve MV E to A Ratio: 1 Mitral Valve A-Wave Peak Velocity: 0.61 m/s Mitral Valve E-Wave Peak Velocity: 0.61 m/s Right Ventricle RV Internal Diastolic Dimension: 3.32 cm Aorta AO Root Diam: 3.06 cm Ascending Ao Diam: 2.42 cm Aortic Valve AoV Area (Peak Tay): 2.59 cm2, 2.59 cm2 AoV Area (VTI): 2.37 cm2, 2.37 cm2 Peak Velocity(Antegrade Flow): 0.92 m/s Peak Gradient(Antegrade Flow): 3.40 mm[Hg] Mean Velocity(Antegrade Flow): 0.66 m/s Mean Gradient(Antegrade Flow): 1.96 mm[Hg] Velocity Time Integral: 22.64 cm Tricuspid Valve Peak Velocity (Regurgitant Flow): 2.37 m/s, 2.27 m/s, 2.16 m/s, 2.28 m/s, 2.09 m/s Pulmonic Valve Mean Gradient: 3.06 mm[Hg] Mean Velocity: 0.82 m/s Peak Velocity: 1.17 m/s, 1.07 m/s Peak Gradient: 4.54 mm[Hg], 5.50 mm[Hg] Right Atrium Right Atrium Systolic Pressure: 35.40 ml, 35.40 ml Dictated by: Santos Pemberton M.D. on 02/13/2025 at 19:22 Approved by: Santos Pemberton M.D. on 02/13/2025 at 19:33
--- OUTSIDE RECORDS SUMMARY | 2025-02-13 09:01 | XMS_ITS | CCD ---
Author Organization [facility] Inform ion Partnership [facility] Care Team Providers Care Infrastructure Design Engineer Name Role Phone DANTE CONTRERAS Attending Unavailable DANTE CONTRERAS Consulting Unavailable DANTE CONTRERAS Admitting Unavailable REQUEST, DR MORRIS LISTED Primary Care Unavaila ble Results Test Name Value Interpretation Reference Range Facil ity GLUCOSE BLOODon 06-29-2022 Glucose [Mass/Vol] 83 mg/dL Normal 74-106 [facility] Comment on above: Performed By: #### L IPID, GLUC #### [facility] [address] [place] [address] Dr. Juana Limon LIPID PROFILEon 06-29-2022 CHOL-HDL RATIO NORM SEE BELOW Normal [facility] Comment on above: Result Comment: 3.3 - 4.4 LOW RISK 4.4 - 7.1 AVERAGE RISK 7.1 - 11.0 MODERATE RISK >11.0 HIGH RISK Performed By: #### L IPID, GLUC #### [facility] [address] [address] [address] Juana Limon Cholesterol [Mass/Vol] 196 mg/dL Normal <=200 [facility] Comment on above: Performed By: #### L IPID, GLUC #### [facility] [address] [address] [address] Juana Limon Cholesterol in HDL [Mass/Vol] 85 mg/dL Critically high 40-60 [facility] Comment on above: Performed By: #### L IPID, GLUC #### [facility] [address] [address] [address] Juana Limon Cholesterol in LDL [Mass/Vol] 98.8 mg/dL Normal [facility] Comment on above: Performed By: #### L IPID, GLUC #### [facility] [address] [address] [address] Juana Limon Cholesterol.total/C holesterol in HDL [Mass ratio] 2.3 {ratio} Normal [facility] Comment on above: Performed By: #### L IPID, GLUC #### [facility] [address] [address] [address] Juana Limon HDL NORMAL > or = 60 mg/dl - LO W CARDIOVASCULAR RISK <40 mg/dl - HIGH CARDIOVASCULAR RISK Normal [facility] Comment on above: Performed By: #### L IPID, GLUC #### [facility] [address] [address] [address] Juana Limon LDL CALC NORMAL SEE BELOW Normal [facility] Comment on above: Result Comment: <100 mg/dl OPTIMAL 100 - 129 mg/dl NEAR OR ABOVE OPTIMAL 130 - 159 mg/dl BORDERLINE HIGH 160 - 189 mg/dl HIGH >190 mg/dl VERY HIGH Performed By: #### L IPID, GLUC #### [facility] [address] [address] [address] Juana Limon Triglyceride [Mass/Vol] 61 mg/dL Normal <=150 [facility] Comment on above: Performed By: #### L IPID, GLUC #### [facility] [address] [address] [address] Juana Limon VLDL CALC 12.2 mg/dL Normal [facility] Comment on above: Performed By: #### L IPID, GLUC #### [facility] [address] [address] [address] Juana Limon Encounters Encounter Date Encounter Type Care Provider Facility Start: 07-03-2022 Encounter for genera l adult medical examination without abnormal findings DANTE CONTRERAS [facility] Start: 06-29-2022 End: 06-30-2022 ambulatory DANTE CONTRERAS Facility:[facility] Start: 06-29-2022 End: 06-30-2022 Encounter for general adult medical examination without abnormal findings DANTE CONTRERAS Facility:[facility] Payers Date Payer Category Payer Unknown [id number] 1960 Unknown [id number] Summary Purpose Family History No Family History [...] BE BASED ON THE PRIMARY CLINICAL RECORDS. [employer] [facility]. provides no warranty or guarantee of the accuracy or completeness of information in this document.
== END 2025-02-13 08:44 | disposition home or self-care (01) ==
LOC: CARD 08:44
PROVIDERS: PCP Family Medicine; Visit Provider Family Medicine
DX: R07.9 Chest pain, unspecified (principal)
CPT/HCPCS: 93306